=== PATIENT | female | born 1950 | race Caucasian/White ===

== ENCOUNTER 2016-11-15 12:22 | Day surgery (SDC) | payer MEDICARE ==
--- NOTE | ~2016-11-15 | EGD ---
EGD REPORT [facility] [address] [id number] NAME: YANG BLAND : [birth year] STATUS : REG [facility]#: [id number] AGE: 66 ADM/REG DATE : 11/15/16 MR#: [id number] REPORT SERV DATE: 11/15/16 DICTATED BY: ZACHERY JIMENEZ DATE: 11/15/16 REPORT STATUS : Draft [facility]ANS[facility]: [email or web address] DATE: 11/15/16 Endoscopy Center Patient Name: Yang Bland Date of : 1950 Attending MD: ZACHERY JIMENEZ MD Procedure Date No Time: 11/15/2016 Procedure: Upper GI endoscopy Indications: Dysphagia, Esophageal reflux Referring MD: GULSHAN ESCOBAR Medicines: Monitored Anesthesia Care Complications: No immediate complications. Procedure: Pre-Anesthesia Assessment: - ASA Grade Assessment: III - A patient with severe systemic disease. After obtaining informed consent, the endoscope was passed under direct vision. Throughout the procedure, the patient's blood pressure, pulse, and oxygen saturations were monitored continuously. The GIF [id number] was introduced through the mouth, and advanced to the second part of duodenum. The upper GI endoscopy was accomplished without difficulty. The patient tolerated the procedure well. Findings: The examined esophagus was normal. Biopsies were taken with a cold forceps for histology. A guidewire was placed and the scope was withdrawn. Dilation was performed with a Savary dilator with mild resistance at 45 Fr. Estimated blood loss: none. Striped mildly erythematous mucosa without bleeding was found in the gastric antrum. Biopsies were taken with a cold forceps for histology. The duodenal bulb and 2nd part of the duodenum were normal. The cardia and gastric fundus were normal on retroflexion. Impression: - Normal esophagus. Biopsied. Dilated. - Erythematous mucosa in the antrum. Biopsied. - Normal duodenal bulb and 2nd part of the duodenum. Recommendation: - Patient has a contact number available for emergencies. The signs and symptoms of potential delayed complications were discussed with the patient. Return to normal activities tomorrow. Written discharge instructions were provided to the patient. - Regular diet. - Follow an antireflux regimen. - Continue present medications. EGD REPORT [address] [address] NAME: YANG BLAND : [birth year] STATUS : REG [facility] [place] PAT#: [id number] AGE: 66 ADM/REG DATE : 11/15/16 MR#: [id number] REPORT SERV DATE: 11/15/16 DICTATED BY: ZACHERY JIMENEZ DATE: 11/15/16 REPORT STATUS : Draft TRANSCRIBED BY: [employer] DATE: 11/15/16 - Return to GI clinic PRN. Procedure Code(s): --- Professional --- 14549, Esophagogastroduodenoscopy, flexible, transoral; with insertion of guide wire followed by passage of dilator(s) through esophagus over guide wire 60574, Esophagogastroduodenoscopy, flexible, transoral; with biopsy, single or multiple Diagnosis Code(s): --- Professional --- K31.9, Disease of stomach and duodenum, unspecified R13.10, Dysphagia, unspecified K21.9, Gastro-esophageal reflux disease without esophagitis CPT copyright 2013 [employer]. All rights reserved. The codes documented in this report are preliminary and upon computer numerical control grinder review may be revised to meet current compliance requirements. ZACHERY JIMENEZ MD 11/15/2016 3:04 PM This report has been signed electronically. Number of Addenda: 0 Note Initiated On: 11/15/2016 2:34 PM [address] [id number]
[~2016-11-15 12:22] MED LIST: ASA5GR PO; BENTYL10 PO; BREO ELLIPTA INH; ESTRACE0.5 MG PO; FISH OIL1200 MG PO; FORADIL INH; LOP25 PO; NEXIUM40 PO; PRILOSEC40 MG PO; PROAIR HFA INH; SINGULAIR1 PO; TRAZODONE150 MG PO; VITAMIN D31000 UNIT PO; X5 PO; ZYRTEC ALLGY10 MG PO
== END 2016-11-15 23:59 | disposition home health service (06) ==
LOC: DMU 12:22
PROVIDERS: Internal Medicine Gastroenterology
PROC: 0D758ZZ Dilation of Esophagus, Via Natural or Artificial Opening Endoscopic (ICD-10-PCS; 2016-11-15)
PROC: 0DB58ZX Excision of Esophagus, Via Natural or Artificial Opening Endoscopic, Diagnostic (ICD-10-PCS; principal; 2016-11-15 14:00)
PROC: 0DB68ZX Excision of Stomach, Via Natural or Artificial Opening Endoscopic, Diagnostic (ICD-10-PCS; 2016-11-15 14:00)
DX: K29.50 Unspecified chronic gastritis without bleeding (principal); I10 Essential (primary) hypertension; F32.9 Major depressive disorder, single episode, unspecified; G43.909 Migraine, unspecified, not intractable, without status migrainosus; J45.909 Unspecified asthma, uncomplicated; F41.9 Anxiety disorder, unspecified; K21.9 Gastro-esophageal reflux disease without esophagitis; Z88.8 Allergy status to other drugs, medicaments and biological substances; F17.200 Nicotine dependence, unspecified, uncomplicated; Z90.710 Acquired absence of both cervix and uterus; Z87.442 Personal history of urinary calculi
CPT/HCPCS: 88305